=== PATIENT | male | born 1940 | race Caucasian/White ===

== ENCOUNTER → 2017-11-27 | Outpatient (CLI) | payer MEDICARE ==
[~2017-11-27] MED LIST: EPIPEN 2-P0.3 MG/0.3 IM
[2017-11-27 13:56] LABS: Source, Urine Clean Catch
[2017-11-27 15:05] LABS: Appearance, Urine Clear (Clear); Bilirubin, Urine Neg (Neg); Blood, Urine Neg (Neg); Color, Urine Yellow (P-Yellow); Glucose Qualitative, Urine Neg (Neg); Ketones, Urine Neg (Neg); Leukocyte Esterase, Urine 2+ (Neg); Nitrite, Urine Neg (Neg); Protein, Urine Neg (Neg); Urobilinogen, Urine NORM (Normal)
[2017-11-27 15:13] LABS: Bacteria Few /hpf; Red Blood Cells, Urine 0-2 /hpf (0-2); Squamous Epithelial Cells Few /hpf (Few)
== END ==
LOC: LAB 13:52
PROVIDERS: Internal Medicine
DX: R30.0 Dysuria (principal)
CPT/HCPCS: 81001; 87086

== ENCOUNTER → 2022-12-09 | Outpatient (CLI) | payer OTHER ==
[2022-12-09 14:45] LABS: Source, Urine Clean Catch
[2022-12-09 17:14] LABS: Appearance, Urine Hazy (Clear); Bilirubin, Urine Neg (Neg); Blood, Urine 1+ (Neg); Color, Urine Yellow (P-Yellow); Glucose Qualitative, Urine Neg (Neg); Ketones, Urine Neg (Neg); Leukocyte Esterase, Urine 3+ (Neg); Nitrite, Urine Neg (Neg); Protein, Urine 1+ (Neg); Specific Gravity, Urine 1.015 (1.003-1.022); Urobilinogen, Urine NORM (Normal)
[2022-12-09 17:20] LABS: White Blood Cells, Urine TNTC /hpf (0-5)
[2022-12-09 17:21] LABS: Bacteria Many /hpf; Squamous Epithelial Cells Not Seen /hpf (Few)
== END ==
LOC: LAB SHORT 14:43
PROVIDERS: Internal Medicine
DX: R30.0 Dysuria (principal)
CPT/HCPCS: 81001; 87077; 87086; 87186

== ENCOUNTER 2024-07-18 21:03 | Inpatient (IN) | payer MEDICARE ==
[~2024-07-18] VITALS: Ht 167.6 cm; Wt 95.1 kg
[2024-07-18] MEDS ORDERED: XARELTO20 M1 PO (21:20)
[2024-07-18] MEDS ORDERED: OMEPRAZOLE20 M1 PO (21:20)
[2024-07-18] MEDS ORDERED: FUROSEMIDE20 MG PO (21:21)
[2024-07-18] MEDS ORDERED: TAMSULOSIN HCL0.4 M1 PO (21:22)
[2024-07-18] MEDS ORDERED: METO2.5 PO (21:22)
[2024-07-18] MEDS ORDERED: XARELTO20 MG PO (21:23)
[2024-07-18] MEDS ORDERED: METOPROLOL TART5010 PO (21:23)
[2024-07-18 21:35] LABS: BASOPHILS ABSOLUTE AUTO 0.03 K/mm3 (0.00-0.23); BASOPHILS PERCENT AUTO 0 % (0-2); EOSINOPHILS PERCENT AUTO 1 % (0-6); Hemoglobin 13.7 g/dL (13.5-17.5); IMMATURE GRAN ABSOLUTE AUTO 0.05 K/mm3 (0.00-0.10); IMMATURE GRAN PERCENT AUTO 1 % (0-1); LYMPHOCYTES ABSOLUTE AUTO 0.71 K/mm3 (0.84-5.20); LYMPHOCYTES PERCENT AUTO 10 % (21-46); MONOCYTES ABSOLUTE AUTO 0.66 K/mm3 (0.16-1.47); MONOCYTES PERCENT AUTO 9 % (4-13); Mean Corpuscular HGB 37.1 pg (26.0-34.0); Mean Corpuscular HGB Conc 35.1 g/dL (31.5-36.5); Mean Corpuscular Volume 106 fL (80-100); Mean Platelet Volume 9.6 fL (9.1-12.4); NEUTROPHILS ABSOLUTE AUTO 5.78 K/mm3 (1.96-9.15); NEUTROPHILS PERCENT AUTO 79 % (41-73); Platelet Count 189 K/mm3 (150-400); RDW Coefficient Variation 14.6 % (11.7-14.2); RDW Standard Deviation 56.7 fL (35.1-46.3); Red Blood Cell Count 3.69 M/mm3 (4.30-5.90); White Blood Cell Count 7.33 K/mm3 (4.00-11.30)
[2024-07-18 21:57] LABS: Albumin, Blood 3.6 g/dL (3.4-5.0); Albumin/Globulin Ratio 0.9 (0.8-1.8); Bilirubin, Total 0.4 mg/dL (0.1-1.0); Bun/Creatinine Ratio 22.9 (12.0-20.0); Calcium, Blood 9.5 mg/dL (8.5-10.1); Creatinine, Blood 1.79 mg/dL (0.60-1.20); Globulin, Blood 4.1 g/dL (2.2-4.0); Potassium, Blood 3.8 mmol/L (3.5-5.5); Total Protein, Blood 7.7 g/dL (6.4-8.2)
[2024-07-18] MEDS ORDERED: Lidocaine 2% Viscous Soln 15 ML UDC PO ONE (22:30)
[2024-07-18] MEDS ORDERED: Acetaminophen 325 MG TABLET PO ONE (22:30)
[2024-07-18] MEDS ORDERED: Mag Hydrox/AL Hydrox/Simeth 30 ML UDC PO ONE (22:30)
[2024-07-18] MEDS ORDERED: Ondansetron HCl 2 MG / ML 2ML Vial IV ONE (22:50)
[2024-07-18] MEDS ORDERED: FentaNYL Citrate 50 MCG/ML 2 ML Injection IV ONE (23:30)
[2024-07-19] MEDS ORDERED: FLU VACC TS2024-25(6MOS UP)/PF 45 MCG/0.5 ML SYRINGE IM ONE (01:20)
[2024-07-19] MEDS ORDERED: OxyCODONE HCL 5 MG TAB PO PRN (01:20)
[2024-07-19] MEDS ORDERED: Ondansetron HCl 2 MG / ML 2ML Vial IV PRN (01:20)
[2024-07-19] MEDS ORDERED: Acetaminophen 325 MG TABLET PO PRN (01:25)
[2024-07-19] MEDS ORDERED: Naloxone HCl 0.4MG / ML 1ML Vial IV PRN (01:25)
[2024-07-19] MEDS ORDERED: FentaNYL Citrate 50 MCG/ML 2 ML Injection IV PRN (01:25)
[2024-07-19] MEDS ORDERED: Ampicillin Sod/Sulbactam Sod 3 GM in NS 100 ML IV SCH (01:51)
[2024-07-19] MEDS ORDERED: Lactated Ringer's 1,000 ML IV SCH (02:00)
[2024-07-19 05:40] LABS: BASOPHILS ABSOLUTE AUTO 0.03 K/mm3 (0.00-0.23); BASOPHILS PERCENT AUTO 0 % (0-2); EOSINOPHILS PERCENT AUTO 0 % (0-6); Hematocrit 38.9 % (37.0-53.0); Hemoglobin 13.7 g/dL (13.5-17.5); IMMATURE GRAN PERCENT AUTO 1 % (0-1); LYMPHOCYTES ABSOLUTE AUTO 0.41 K/mm3 (0.84-5.20); LYMPHOCYTES PERCENT AUTO 3 % (21-46); MONOCYTES ABSOLUTE AUTO 1.01 K/mm3 (0.16-1.47); MONOCYTES PERCENT AUTO 6 % (4-13); Mean Corpuscular HGB 37.2 pg (26.0-34.0); Mean Corpuscular HGB Conc 35.2 g/dL (31.5-36.5); Mean Corpuscular Volume 106 fL (80-100); Mean Platelet Volume 9.5 fL (9.1-12.4); NEUTROPHILS ABSOLUTE AUTO 14.14 K/mm3 (1.96-9.15); NEUTROPHILS PERCENT AUTO 90 % (41-73); Platelet Count 202 K/mm3 (150-400); RDW Coefficient Variation 14.5 % (11.7-14.2); RDW Standard Deviation 56.6 fL (35.1-46.3); Red Blood Cell Count 3.68 M/mm3 (4.30-5.90); White Blood Cell Count 15.69 K/mm3 (4.00-11.30)
[2024-07-19] MEDS ORDERED: Omeprazole 20 MG CapCR PO SCH (06:00)
[2024-07-19 06:26] LABS: Albumin, Blood 3.5 g/dL (3.4-5.0); Albumin/Globulin Ratio 0.9 (0.8-1.8); Bilirubin, Total 0.6 mg/dL (0.1-1.0); Bun/Creatinine Ratio 24.1 (12.0-20.0); Calcium, Blood 9.7 mg/dL (8.5-10.1); Creatinine, Blood 1.62 mg/dL (0.60-1.20); Globulin, Blood 4.1 g/dL (2.2-4.0); Potassium, Blood 3.9 mmol/L (3.5-5.5); Total Protein, Blood 7.6 g/dL (6.4-8.2)
[2024-07-19] MEDS ORDERED: Docusate Sodium 100 MG Cap PO SCH (09:00)
[2024-07-19] MEDS ORDERED: Furosemide 20 MG Tab PO SCH (09:00)
[2024-07-19] MEDS ORDERED: Metoprolol Tartrate 50 MG Tab PO SCH (09:00)
[2024-07-19] MEDS ORDERED: Lactobacil 2-S.Thermo-Bifido 1 1 Cap PO SCH (09:00)
[2024-07-19] MEDS ORDERED: Tamsulosin HCl 0.4 MG Cap PO SCH (09:00)
[2024-07-19 15:01] VITALS: BP 106/87
--- NOTE | 2024-07-19 18:45 | NUR ---
SHIFT SUMMARY NO MAJOR CHANGES AT THIS POINT. PT HAS BEEN IN BED AND AMBULATING INDEPENDENTLY WITH STEADY GAIT OCCASIONALLY TO BATHROOM. PT HAS S/O AT BEDSIDE. PT HAS HAD NO COMPLAINTS BESIDES A HEADACHE, WHICH HE WAS GIVEN TYLENOL FOR. PT HAS BEEN NPO SINCE LAST NIGHT. NS INFUSING PER EMAR. CALL LIGHT IN REACH.
[2024-07-19 19:06] VITALS: BP 116/76
[2024-07-20] VITALS (13 sets, daily range): BP systolic 97–119; BP diastolic 64–85
--- NOTE | 2024-07-20 05:39 | NUR ---
SHIFT SUMMARY ANNETTE WAS ALERT AND FULLY ORIENTED ON ASSESMENT. PT HERE FOR ACUTE MARQUITA, SURGERY CONSULTED, PT KEPT NPO FROM MIDNIGHT. PT PAIN/NAUSEA HAS RESOLVED AT THIS TIME W/ NPO STATUS. PT CONTINENT, ABLE TO AMBULATE IDEPENDENTLY. NO ACUTE EVENTS. NO CHANGES TO PT CONDITION NOTED.
[2024-07-20 06:34] LABS: Hematocrit 35.8 % (37.0-53.0); Hemoglobin 12.4 g/dL (13.5-17.5); Mean Corpuscular HGB 37.1 pg (26.0-34.0); Mean Corpuscular HGB Conc 34.6 g/dL (31.5-36.5); Mean Corpuscular Volume 107 fL (80-100); Platelet Count 166 K/mm3 (150-400); RDW Coefficient Variation 14.9 % (11.7-14.2); RDW Standard Deviation 58.2 fL (35.1-46.3); Red Blood Cell Count 3.34 M/mm3 (4.30-5.90); White Blood Cell Count 13.18 K/mm3 (4.00-11.30)
[2024-07-20 06:57] LABS: Albumin, Blood 2.8 g/dL (3.4-5.0); Albumin/Globulin Ratio 0.8 (0.8-1.8); Bilirubin, Total 1.2 mg/dL (0.1-1.0); Bun/Creatinine Ratio 22.9 (12.0-20.0); Calcium, Blood 9.1 mg/dL (8.5-10.1); Creatinine, Blood 1.44 mg/dL (0.60-1.20); Globulin, Blood 3.6 g/dL (2.2-4.0); Potassium, Blood 3.7 mmol/L (3.5-5.5); Total Protein, Blood 6.4 g/dL (6.4-8.2)
[2024-07-20] MEDS ORDERED: Lactated Ringer's 1,000 ML IV ONE (09:52)
--- NOTE | 2024-07-20 09:54 | NUR ---
PT TO SURGERY
[2024-07-20] MEDS ORDERED: Bupivacaine 0.5% HCl 5 MG/ML 30MLVIAL ONE (10:07)
[2024-07-20] MEDS ORDERED: FentaNYL Citrate 50 MCG/ML 2 ML Injection ONE (10:22)
[2024-07-20] MEDS ORDERED: Rocuronium Bromide 10 MG/ML 5ML Injection IV ONE (10:23)
[2024-07-20] MEDS ORDERED: SuccINYLCHOLINE Chloride 100 MG/5 ML 5MLSYR ONE (10:23)
[2024-07-20] MEDS ORDERED: Etomidate 2MG / ML 10ML Vial ONE (10:25)
[2024-07-20] MEDS ORDERED: Phenylephrine HCl 10mg/ml 1 ml Vial ONE (10:30)
[2024-07-20] MEDS ORDERED: Sodium Chloride 0.9% Inj 10 ML IV ONE (10:31)
[2024-07-20] MEDS ORDERED: propofoL 20 ML IV ONE (11:31)
[2024-07-20] MEDS ORDERED: Sugammadex Sodium 200 MG/2ML SDV (100 MG/ML) ONE (11:32)
[2024-07-20] MEDS ORDERED: Labetalol HCL 5 MG/ML 4ML Injection (Single Dose) ONE (11:32)
[2024-07-20] MEDS ORDERED: Lactated Ringer's 1,000 ML IV SCH (12:15)
[2024-07-20] MEDS ORDERED: Ondansetron HCl 2 MG / ML 2ML Vial ONE (12:28)
[2024-07-20] MEDS ORDERED: Dexamethasone Sod Phos 10 MG/ML 1ML VIAL ONE (12:28)
--- NOTE | 2024-07-20 12:52 | NUR ---
PT ARRIVED TO ROOM FROM PACU STOOD AND PIVOTED TO BED W/SBA. UMBILICAL LAP SITE OOZING, PLACED GAUZE AND BANDAID. CALL LIGHT IN REACH. PT EDUCATED ON FALL PREVENTION. VSS.
--- NOTE | 2024-07-20 17:07 | NUR ---
SUMMARY NO ACUTE CHANGES SINCE ARRIVING TO FLOOR FROM PACU. TOLERATED CLEAR LIQUIDS, VOIDED. NOW SLEEPING. VSS. CALL LIGHT IN REACH.
[2024-07-21 00:49] VITALS: BP 104/75
[2024-07-21 04:27] VITALS: BP 103/63
[2024-07-21 04:40] VITALS: BP 99/74
[2024-07-21 05:31] LABS: Hematocrit 34.9 % (37.0-53.0); Hemoglobin 11.8 g/dL (13.5-17.5); Mean Corpuscular HGB 37.7 pg (26.0-34.0); Mean Corpuscular HGB Conc 33.8 g/dL (31.5-36.5); Mean Platelet Volume 10.3 fL (9.1-12.4); Platelet Count 155 K/mm3 (150-400); RDW Coefficient Variation 14.6 % (11.7-14.2); RDW Standard Deviation 60.5 fL (35.1-46.3); Red Blood Cell Count 3.13 M/mm3 (4.30-5.90); White Blood Cell Count 13.49 K/mm3 (4.00-11.30)
[2024-07-21 05:33] LABS: Mean Corpuscular Volume 112 fL (80-100)
[2024-07-21 05:55] LABS: BAND PERCENT MAN 17 % (0-8); BASOPHILS PERCENT MAN 0 % (0-2); EOSINOPHILS PERCENT MAN 0 % (0-6); LYMPHOCYTES ABSOLUTE MAN 0.26 K/mm3 (0.84-5.20); LYMPHOCYTES PERCENT MAN 2 % (21-46); MONOCYTES PERCENT MAN 6 % (4-13); NEUTROPHILS ABSOLUTE MAN 12.41 K/mm3 (1.96-9.15); SEG NEUTROPHILS PERCENT MAN 75 % (41-73); TOTAL CELLS COUNTED 100
[2024-07-21 05:59] LABS: Albumin, Blood 2.7 g/dL (3.4-5.0); Albumin/Globulin Ratio 0.7 (0.8-1.8); Bun/Creatinine Ratio 22.1 (12.0-20.0); Calcium, Blood 9.6 mg/dL (8.5-10.1); Creatinine, Blood 1.72 mg/dL (0.60-1.20); Total Protein, Blood 6.7 g/dL (6.4-8.2)
[2024-07-21 07:37] VITALS: BP 100/71
--- NOTE | 2024-07-21 07:53 | NUR ---
SHIFT SUMMARY NOC. PT POD 1 FOR LAP MARQUITA. PT A/OX4. PT TOLERATING PO INTAKE, AND VOIDING URINE. PT LAP SITES X4 C/D/I. PREVIOUS DRIED SANG DRAINAGE ON UMBILICAL LAP SITE WITH GAUZE AND BANDAID COVERING. NO NEW DRAINAGE THIS SHIFT, CHANGED AT ASSESSMENT. PT PASSING GAS AND REPORTED BM THIS SHIFT. PT MEDICATED WITH TYLENOL AND REPORTED RELIEF. BED IN LOWEST POSITION. CALL LIGHT IN REACH.
--- NOTE | 2024-07-21 10:53 | NUR ---
DR WADE AND DR LEON IN TO SEE PT.
[2024-07-21 12:01] VITALS: BP 111/72
--- NOTE | 2024-07-21 13:11 | NUR ---
DISCHARGED AT 1219 REVIEWED DC PAPERWORK WITH PT; VERBALIZED UNDERSTANDING. IVS WERE DC'D, VSS. PT LEFT UNIT IN WC W/POSSESSIONS AND DC PAPERWORK IN HAND, ACCOMPANIED BY RIDE.
== END 2024-07-21 12:19 | disposition home or self-care (01) | DRG 418 ==
LOC: ER 21:03 → SURS 21:04 → ERHOLD 21:04 → ER 07-19 01:17 → ERHOLD 07-19 01:17 → SURS 07-19 14:52
PROVIDERS: Family Medicine; Student in an Organized Health Care Education/Training Program; Surgery; ADMIT Student in an Organized Health Care Education/Training Program
PROC: 0WQF4ZZ Repair Abdominal Wall, Percutaneous Endoscopic Approach (ICD-10-PCS; 2024-07-20)
PROC: 8E0W4CZ Robotic Assisted Procedure of Trunk Region, Percutaneous Endoscopic Approach (ICD-10-PCS; 2024-07-20)
PROC: 0FT44ZZ Resection of Gallbladder, Percutaneous Endoscopic Approach (ICD-10-PCS; principal; 2024-07-20 08:30)
DX: K80.00 Calculus of gallbladder with acute cholecystitis without obstruction (principal); I48.20 Chronic atrial fibrillation, unspecified; I10 Essential (primary) hypertension; K42.9 Umbilical hernia without obstruction or gangrene; Z66 Do not resuscitate; K21.9 Gastro-esophageal reflux disease without esophagitis; Z28.21 Immunization not carried out because of patient refusal; Z98.52 Vasectomy status; Z79.899 Other long term (current) drug therapy; Z79.01 Long term (current) use of anticoagulants; E78.00 Pure hypercholesterolemia, unspecified
CPT/HCPCS: 36415; 71045; 76705; 80053; 83605; 83690; 83735; 83880; 84484; 85025; 85027; 93005; 93010; 96365; 96366; 96375; 96376; 99285-25; A9270; G0378; J0295; J0330; J1100; J2371; J2405; J2704; J3010; J7120